=== PATIENT | male | born 1955 | race Caucasian/White ===

== ENCOUNTER 2018-03-24 16:34 | Inpatient (IN) ==
--- NOTE | 2018-03-24 16:47 | Emergency Department Note ---
ED Disposition Clinical Impression: Acute pulmonary edema, Congestive heart disease, CVA (cerebral vascular accident), Hypertension, Diabetes, Elevated troponin, Intraventricular conduction delay Disposition: Still a Patient Condition on Discharge: Fair - Critical Care Critical Care Time: No Attestation: On , the high probability of a clinically significant, sudden or life threatening deterioration of the following system(s) required my full and direct attention, intervention and personal management. The time I documented below is in addition to time spent performing reported procedures but includes the following listed in this critical care notation. Medical Decision Making - Medical Records Medical records reviewed: Yes: I reviewed the patient's medical records. - [place] Inquiry Pt receiving controlled substance: No [place] was queried for this patient: No Vital Signs: 03/24/18 16:34 03/24/18 16:35 03/24/18 17:04 Temperature 98.2 F 97.6 F Temperature Source Oral Oral Pulse Rate [Right Brachial] 117 H 124 H 117 H Respiratory Rate 26 H 32 H 16 Blood Pressure [Right Arm] 153/109 H 118/52 L 157/109 H Blood Pressure Mean [Right Arm] 123 74 125 Blood Pressure Source [Right Arm] Automatic Cuff Automatic Cuff Blood Pressure Position [Right Arm] Supine Sitting 02 Sat by Pulse Oximetry 99 86 L 99 Oxygen Delivery Method Room Air Room Air BiPAP 03/24/18 17:30 03/24/18 17:40 Temperature Temperature Source Pulse Rate [Right Brachial] 110 H 102 H Respiratory Rate 16 Blood Pressure [Right Arm] 124/82 124/82 Blood Pressure Mean [Right Arm] 96 96 Blood Pressure Source [Right Arm] Automatic Cuff Blood Pressure Position [Right Arm] Sitting 02 Sat by Pulse Oximetry 99 99 Oxygen Delivery Method BiPAP BiPAP - Lab Data Lab Results 03/24/18 16:20: D-Dimer 367 03/24/18 16:20: Sodium 137, Potassium 4.2, Chloride 99, Carbon Dioxide 24, Anion Gap 18.2 H, BUN 24 H, Creatinine 1.44 H, Estimated Creat Clear 69, Estimated GFR 50 L, Est GFR ( Amer) 60, Glucose 296 H, Calcium 8.9, Troponin I 2.68 H 03/24/18 16:20: B-Natriuretic Peptide 360 H 03/24/18 16:20: Total Bilirubin 0.4, Direct Bilirubin 0.1, Indirect Bilirubin 0.3, AST 30, ALT 28, Alkaline Phosphatase 139 H, Total Protein 7.9, Albumin 3.5 03/24/18 16:20: WBC 11.3 H, RBC 5.47, Hgb 17.3, Hct 50.3, MCV 92.0, MCH 31.6 H, MCHC 34.3, RDW 12.9, Plt Count 186, MPV 8.8, Neut % (Auto) 70.3, Lymph % (Auto) 22.7, [place] % (Auto) 5.3, Eos % (Auto) 1.2, Baso % (Auto) 0.5, Neut # (Auto) 7.9 H, Lymph # (Auto) 2.6, [place] # (Auto) 0.6, Eos # (Auto) 0.1, Baso # (Auto) 0.1 03/24/18 16:50: Specimen Source R/r, O2 % 100, ABG pH 7.33 L, ABG pCO2 41.0, ABG pO2 50.4 L, ABG HCO3 21.0 L, ABG Total CO2 22.3 L, ABG O2 Saturation 84 L*, ABG Base Excess -4.9 L, Cristian Test Y Result diagrams: 03/24/18 16:20 03/24/18 16:20 Orders (Tests/Meds): ED MEDICATIONS Discontinued Medications Generic Name Dose Route Start Last Admin Trade Name Santo PRN Reason Stop Dose Admin Furosemide 40 mg 03/24/18 17:04 03/24/18 17:08 Lasix 40mg/4ml Vial IV 03/24/18 17:05 40 mg ONCE ONE Administration Furosemide 40 mg 03/24/18 16:38 03/24/18 16:38 Lasix 40mg/4ml Vial IV 03/24/18 16:39 40 mg ONCE ONE Administration Sodium Chloride 500 mls @ 999 mls/hr 03/24/18 16:45 03/24/18 17:42 Sod Chlor 0.9% 1000ml Bag IV 03/24/18 17:15 Not Given .Q31M KIM Morphine Sulfate 2 mg 03/24/18 17:04 03/24/18 16:38 Morphine 2mg/Ml Syringe IV 03/24/18 17:05 2 mg ONCE ONE Administration Morphine Sulfate 2 mg 03/24/18 17:06 03/24/18 17:00 Morphine 2mg/Ml Syringe IV 03/24/18 17:07 2 mg ONCE ONE Administration Ondansetron HCl 4 mg 03/24/18 17:04 03/24/18 16:38 Zofran 4mg/2ml Vial IV 03/24/18 17:05 4 mg ONCE ONE Administration ORDERS Category Date Time Status Lactic Acid Stat Lab 03/24/18 16:39 Ordered Blood Culture Stat Micro 03/24/18 16:39 Ordered Arterial Blood Gas Stat RT 03/24/18 16:37 Ordered ECG Request by Dr/Nse Stat Y 03/24/18 16:37 Ordered - Radiology Data #1 Image(s): Chest Image Reviewed: Yes I reviewed the patient's radiology image Preliminary Findings: Abnormal Cardiomegaly and acute congestive heart failure. - ECG Data Tracing #1 Sinus tachycardia 122/min intraventricular conduction delay T wave inversions in the inferior leads and the lateral leads just involve ischemia. ECG initial impression date: 03/24/18 ECG initial impression time: 16:40 Medical Decision Narrative: After obtaining an EKG was sinus tachycardia T wave in inferior lead ischemia and lateral wall ischemia. His blood gas shows pH of 7.3 241/50/84% on 100% oxygen I called Dr. Vidal the active directory specialist who suggested to give the patient Lasix, he was given BiPAP and morphine for anxiety. He remained tachycardic his oxygenation went to 100% with blood pressure systolic of 150 he was given more Lasix. The patient gradually feeling better pressure has normalized remained to be tachycardic at 115/min. Discussed with the patient admission and possible cardiac catheterization in the morning he was agreeable.. I discussed with Dr. Vidal who preferred the patient to be stabilized before cardiac ca theterization so he can lay flat without orthopnea. I spoke with Dr. Akins data integration analyst for Dr. Swartz requested the patient start on Brilinta and given additional dose of Lasix at midnight. Resp/SOB HPI - General Chief Complaint: Chest Pain Stated Complaint: SUDDEN ONSET SOA Time Seen by Provider: 03/24/18 16:49 Mode of Arrival: Ambulatory Limitations: No Limitations Description of Symptoms (Recalled from ER Triage Doc. by RN): SHORTNESS OF AIR SUDDEN ONSETAPPROX 45 MINS AGO WHILE AT REST. PT STATES HAD HAD HEARTBURN FOR A WEEK (INDIGESTION) AND THAT HE IS STRUGGLING TO GET HIS BREATH - History of Present Illness 62 years old white male with history of hypertension diabetes and CVA 4 years ago. He has been experiencing heartburn for the past week until an hour ago when he started getting shortness of breath upon arrival to the ED his saturation was in the 80s applied oxygen obtain a stat chest x-ray was positive for congestive heart failure and cardiomegaly. Reviewed his 12-lead EKG which is positive for inferior wall ischemia and lateral wall ischemia and immediately faxed to Dr. Vidal the active directory specialist. The patient received morphine 2 mg IV, Lasix 40 mg IV and started him on BiPAP as he did not tolerate the 100%. MD Complaint: shortness of breath Onset (ago): hour(s) (1 hour prior to arrival.) Severity: severe Consistency/Duration: constant Relieving factors: upright position Exacerbating factors: lying flat Associated symptoms: orthopnea Treatment prior to arrival: none - Related Data Home Medications Medication Instructions Recorded Confirmed Clopidogrel Bisulfate [Plavix 75mg 75 mg PO DAILY 03/24/18 03/24/18 Tab] Insulin Glargine,Hum.rec.anlog 0 unit SQ DAILY 03/24/18 03/24/18 [Lantus Insulin 100units/mL 10mL vial] Insulin Lispro [Humalog] 0 unit SQ DAILYP PRN 03/24/18 03/24/18 Pravastatin Sodium 80 mg PO DAILY 03/24/18 03/24/18 Allergies Allergy/AdvReac Type Severity Reaction Status Date / Time NO KNOWN ALLERGIES Allergy Uncoded 04/24/17 14:30 [facility] History I have reviewed the patient's past medical history: Yes - Social History Educational Level: Completed High School Smoking Status: Unknown if ever smoked Tobacco Type: smokeless tobacco Alcohol Intake: never - Psychiatric History Expresses thoughts of harming self/others: None Suicide Plan Description: No Plan ROS Obtained: Yes All systems reviewed & no additional complaints Physical Exam - General General appearance: alert, in no apparent distress - Head Head exam: atraumatic, normocephalic, normal inspection - Eye Eye exam: Present: normal appearance, PERRL, EOMI. Absent: scleral icterus, nystagmus - ENT ENT exam: Present: normal exam, normal oropharynx, mucous membranes moist, TM's normal bilaterally, normal external ear exam - Neck Neck exam: Present: normal inspection, full ROM, trachea midline. Absent: tenderness, meningismus, lymphadenopathy - Chest Chest inspection: Present: normal inspection, symmetric chest wall rise. Absent: tenderness - Respiratory Respiratory exam: Present: normal lung sounds bilaterally. Absent: respiratory distress - Cardiovascular Cardiovascular exam: Present: regular rate, normal rhythm. Absent: JVD - Abdominal Exam Abdominal exam: Present: soft, normal bowel sounds. Absent: distention, tend erness, guarding - Extremities Exam Extremities exam: Present: normal inspection, full ROM, normal capillary refill. Absent: calf tenderness - Back Exam Back exam: Present: normal inspection. Absent: tenderness - Neurological Exam Neurological exam: Present: alert, oriented X3, CN II-XII intact, motor sensory deficit, reflexes normal - Psychiatric Psychiatric exam: Present: normal affect, normal mood - Skin Skin exam: Present: warm, dry, intact, normal color - Lymphatic Lymphatic Findings: no adenopathy
[2018-03-24 16:51] LABS: ABG Base Excess -4.9 mmol/L (-2.4-2.3); ABG Oxygen Saturation 84 % (90-100); ABG PH 7.33 mmol/L (7.35-7.45); ABG PO2 50.4 mmhg (80-100); ABG TCO2 22.3 mmhg (23-27)
[2018-03-24 17:05] LABS: Basophils # 0.1 K/mm3 (0-0.2); Basophils % 0.5 % (0.1-2.0); Eosinophils # 0.1 K/mm3 (0.0-0.4); Eosinophils % 1.2 % (0.1-12.0); Hematocrit 50.3 % (42.0-52.0); Hemoglobin 17.3 g/dL (14.1-18.0); Lymphocytes # 2.6 K/mm3 (0.7-4.5); Lymphocytes % 22.7 % (10-50); Mean Corpuscular HGB Conc 34.3 g/dL (31.8-35.4); Mean Corpuscular Hemoglobin 31.6 pg (27.0-31.2); Mean Platelet Volume 8.8 fl (7.4-10.4); Monocytes # 0.6 K/mm3 (0.1-1.0); Monocytes % 5.3 % (1.7-9.3); Neutrophils # 7.9 K/mm3 (1.8-7.8); Neutrophils % 70.3 % (37.0-80.0); Platelet Count 186 K/mm3 (142-424); Red Blood Count 5.47 M/mm3 (4.60-6.20); Red Cell Distribution Width 12.9 % (11.5-17.5); White Blood Count 11.3 K/mm3 (4.8-10.8)
[2018-03-24 17:06] LABS: Allen's Test Y; Oxygen 100 %
[2018-03-24 17:10] LABS: Albumin Level 3.5 gm/dL (3.4-5.0); Bilirubin,Direct 0.1 mg/dL (0.0-0.2); Bilirubin,Indirect 0.3 mg/dL (0.0-0.9); Bilirubin,Total 0.4 mg/dL (0.2-1.0); Total Protein,Serum 7.9 gm/dL (6.4-8.2)
[2018-03-24 17:21] LABS: Anion Gap 18.2 mEq/L (5-15); Calcium 8.9 mg/dL (8.5-10.1); Potassium 4.2 mmoL/L (3.5-5.1)
[2018-03-25 05:24] LABS: Basophils % 0.4 % (0.1-2.0); Eosinophils % 0.3 % (0.1-12.0); Hematocrit 48.2 % (42.0-52.0); Hemoglobin 15.2 g/dL (14.1-18.0); Lymphocytes # 1.9 K/mm3 (0.7-4.5); Mean Corpuscular HGB Conc 31.6 g/dL (31.8-35.4); Mean Corpuscular Hemoglobin 29.4 pg (27.0-31.2); Mean Corpuscular Volume 93.1 fl (80-94); Mean Platelet Volume 9.1 fl (7.4-10.4); Monocytes # 0.7 K/mm3 (0.1-1.0); Monocytes % 6.4 % (1.7-9.3); Neutrophils # 7.9 K/mm3 (1.8-7.8); Neutrophils % 74.9 % (37.0-80.0); Platelet Count 174 K/mm3 (142-424); Red Blood Count 5.18 M/mm3 (4.60-6.20); White Blood Count 10.5 K/mm3 (4.8-10.8)
[2018-03-25 05:27] LABS: Anion Gap 19.2 mEq/L (5-15); Calcium 8.4 mg/dL (8.5-10.1); Potassium 4.2 mmoL/L (3.5-5.1)
--- NOTE | 2018-03-25 07:42 | Pharmacy Consult Notes ---
[facility] Pharmacy VTE Monitoring - Patient Demographics Admission date: 03/24/18 Report Date: 03/25/18 Time: 07:42 Allergies/Adverse Reactions: Patient Allergies NO KNOWN ALLERGIES Allergy (Uncoded 04/24/17 14:30) Height: 1.73 m Weight: 135.171 kg Patient Problems: Current Active Problems Acute pulmonary edema (Acute) Congestive heart disease (Acute) CVA (cerebral vascular accident) (Acute) Hypertension (Acute) Diabetes (Acute) Elevated troponin (Acute) Intraventricular conduction delay (Acute) - VTE Risk Labs: VTE Related Lab Results Hgb 15.2 g/dL (14.1-18.0) D 03/25/18 04:50 Hct 48.2 % (42.0-52.0) 03/25/18 04:50 Plt Count 174 K/mm3 (142-424) 03/25/18 04:50 BUN 34 mg/dL (7-18) H D 03/25/18 04:50 Creatinine 1.83 mg/dL (0.70-1.30) H D 03/25/18 04:50 Estimated Creat Clear 41 mL/min (50-200) 03/25/18 04:50 VTE Score: 6 VTE Risk Level: Moderate Risk - Prophylaxis VTE Prophylaxis Ordered?: Yes Types of VTE Prophylaxis: TEDS Knee High, Pharmacological Location of Applied Device: Bilateral Lower Extremeties Pharmacologic Type: Other (BRILINTA) - VTE Diagnosis Confirmed Treatment or plan recommended: Continue Current Treatment
--- NOTE | 2018-03-25 10:48 | Consult Report ---
History of Present Illness Consult date: 03/25/18 Requesting physician: Baron Belle Consult reason: chest pain Chief complaint: chest pain, SOA Additional Medical History:: 1. History of CVA with residual short-term memory loss, approximately 2013 2. Diabetes mellitus, treated for greater than 12 years with most recent hemoglobin A1c of 10 3. Family history of heart disease 4. Abnormal CXR History of present illness: 62-year-old diabetic admitted through the ER for acute myocardial infarction. Patient with 1 week of stuttering chest pain and shortness of breath with decrease in exercise tolerance. Patient describes the chest pain as a heartburn type sensation in the substernal area. Symptoms would resolve after rest for several minutes. Yesterday symptoms onset at rest and would not resolve with associated severe shortness of breath. Patient came to the ER for further evaluation. EKG showed inferior ST segment depression with T wave inversion also noted in the lateral leads as well. Initial troponin was elevated at 2.6 and patient was admitted after being started on antiplatelet and anticoagulation therapy. Patient has remained symptom-free overnight. EKG this a.m. shows resolution of ST-T wave abnormalities. [facility] History Medical History: Reports:: Cerebrovascular Accident, Diabetes Mellitus Type 2 - *Social History Educational Level: Completed High School Smoking Status: Unknown if ever smoked Tobacco Type: smokeless tobacco Alcohol Intake: never - Psychiatric History Expresses thoughts of harming self/others: None Suicide Plan Description: No Plan Meds Home Medications Medication Instructions Recorded Confirmed Type Clopidogrel Bisulfate [Plavix 75mg 75 mg PO DAILY 03/24/18 03/24/18 History Tab] Empagliflozin [Jardiance] 25 mg PO DAILY 03/24/18 03/24/18 History Insulin Aspart [Novolog Flexpen] 0 unit SQ BID 03/24/18 03/24/18 History Insulin Glargine,Hum.rec.anlog 44 unit SQ DAILY 03/24/18 03/24/18 History [Lantus Insulin 100units/mL 10mL vial] Lisinopril [Lisinopril 40mg Tablet] 40 mg PO DAILY 03/24/18 03/24/18 History Pravastatin Sodium 80 mg PO HS 03/24/18 03/25/18 History Allergies Allergy/AdvReac Type Severity Reaction Status Date / Time No Known Allergies Allergy Unverified 03/25/18 10:21 Review of Systems - *Cardiovascular Reports chest pain with activity, Reports shortness of breath - *Respiratory Reports shortness of breath with activity - *Gastrointestinal Reports heartburn, Denies abdominal pain - *Genitourinary Denies blood in urine - *Musculoskeletal Denies joint pain Exam Vital signs and Labs for Last 24 Hours: Temp Pulse Resp BP Pulse Ox 98.2 F 82 14 121/83 100 03/25/18 10:00 03/25/18 10:00 03/25/18 10:00 03/25/18 10:00 03/25/18 10:00 Laboratory Results - last 24 hr 03/24/18 16:20: D-Dimer 367 03/24/18 16:20: Sodium 137, Potassium 4.2, Chloride 99, Carbon Dioxide 24, Anion Gap 18.2 H, BUN 24 H, Creatinine 1.44 H, Estimated Creat Clear 69, Estimated GFR 50 L, Est GFR ( Amer) 60, Glucose 296 H, Calcium 8.9, Troponin I 2.68 H 03/24/18 16:20: B-Natriuretic Peptide 360 H 03/24/18 16:20: Total Bilirubin 0.4, Direct Bilirubin 0.1, Indirect Bilirubin 0.3, AST 30, ALT 28, Alkaline Phosphatase 139 H, Total Protein 7.9, Albumin 3.5 03/24/18 16:20: WBC 11.3 H, RBC 5.47, Hgb 17.3, Hct 50.3, MCV 92.0, MCH 31.6 H, MCHC 34.3, RDW 12.9, Plt Count 186, MPV 8.8, Neut % (Auto) 70.3, Lymph % (Auto) 22.7, [place] % (Auto) 5.3, Eos % (Auto) 1.2, Baso % (Auto) 0.5, Neut # (Auto) 7.9 H, Lymph # (Auto) 2.6, [place]ard # (Auto) 0.6, Eos # (Auto) 0.1, Baso # (Auto) 0.1 03/24/18 16:50: Specimen Source R/r, O2 % 100, ABG pH 7.33 L, ABG pCO2 41.0, ABG pO2 50.4 L, ABG HCO3 21.0 L, ABG Total CO2 22.3 L, ABG O2 Saturation 84 L*, ABG Base Excess -4.9 L, Cristian Test Y 03/24/18 19:40: Troponin I 6.32 H 03/24/18 22:00: Troponin I 5.79 H 03/25/18 04:50: WBC 10.5, RBC 5.18, Hgb 15.2 D, Hct 48.2, MCV 93.1, MCH 29.4, MCHC 31.6 L, RDW 13.0, Plt Count 174, MPV 9.1, Neut % (Auto) 74.9, Lymph % (Auto) 18.0, [place] % (Auto) 6.4, Eos % (Auto) 0.3, Baso % (Auto) 0.4, Neut # (Auto) 7.9 H, Lymph # (Auto) 1.9, [place]ard # (Auto) 0.7, Eos # (Auto) 0.0, Baso # (Auto) 0.0 03/25/18 04:50: Sodium 135 L, Potassium 4.2, Chloride 97 L, Carbon Dioxide 23, Anion Gap 19.2 H, BUN 34 H D, Creatinine 1.83 H D, Estimated Creat Clear 41, Estimated GFR 38 L, Est GFR ( Amer) 46 L D, Glucose 352 H, Calcium 8.4 L I & O for Last 24 hours: Intake & Output 03/22/18 03/23/18 03/24/18 03/25/18 11:59 11:59 11:59 11:59 Intake Total 240 / 240 Output Total 3550 / 3550 Balance -3310 / -3310 Weight 298 lb - *Routine Neck Exam Present: supple. Absent: JVD, carotid bruit - *Routine Respiratory Exam Present: decreased breath sounds, crackles. Absent: accessory muscle use, rales, rhonchi, wheezes - *Routine Cardiovascular Exam Present: RRR, murmur. Absent: gallop, rubs - *Routine Abdominal Exam Present: soft. Absent: tenderness, distended, guarding - *Routine Extremities Exam Absent: edema, calf tenderness - *Routine Neurological Exam Present: alert, oriented X3, moving all extremities Assessment and Plan (1) Acute myocardial infarction Current visit: Yes Status: Acute Category: Medical Code(s): I21.9 - Acute myocardial infarction, unspecified (2) Acute pulmonary edema Current visit: Yes Status: Acute Category: Medical Code(s): J81.0 - Acute pulmonary edema (3) Diabetes Current visit: Yes Status: Acute Category: Medical Code(s): E11.9 - Type 2 diabetes mellitus without complications (4) CKD stage 3 due to type 2 diabetes mellitus Current visit: Yes Status: Acute Category: Medical Code(s): E11.22 - Type 2 diabetes mellitus with diabetic chronic kidney disease; N18.3 - Chronic kidney disease, stage 3 (moderate) (5) Abnormal chest x-ray Current visit: Yes Status: Acute Category: Medical Code(s): R93.89 - Abnormal findings on diagnostic imaging of other specified body structures - Assessment and plan all Dx Assessment and Plan for all problems:: 1. Plan to proceed with left heart catheterization due to acute myocardial infarction. Patient currently symptom-free. Risks, benefits and procedure explained to the patient with questions answered. 2. Will obtain an echocardiogram 3. Further recommendations to follow.
--- NOTE | 2018-03-25 10:53 | History & Physical Report ---
*Admission Date: 03/24/18 *Chief complaint: Chest pain/shortness of air *History of present illness: 62-year-old white male with diabetes, insulin requiring, history of cerebrovascular disease and a 1 week history of increased chest pain with heartburn type symptoms that culminated increasing shortness of air, orthopnea and rapid heart rates that cause presentation to the emergency department late yesterday. In the emergency department was noted elevated troponins, pulmonary edema on exam and confirmed by chest x-ray and evidence of tachycardia. Patient was treated with oxygen support/BiPAP support for respiratory acidosis, diuresed with Lasix and placed on anticoagulant therapy after EKG showed ST segment changes without evidence of STEMI. Given elevated troponin levels and presentation of cardiac symptoms and pulmonary edema patient was diagnosed with non-STEMI with cardiogenic pulmonary edema and admitted to intensive care unit for further evaluation. [facility] History I have reviewed the patient's past medical history: Yes Medical History: Reports:: Anxiety, Carotid Stenosis, Coronary Artery Disease, Cerebrovascular Accident, Diabetes Mellitus Type 2 (Insulin requiring), Gastroesophageal Reflux Disease(GERD) Denies:: Gastrointestinal Bleed, Hiatal Hernia, Home Oxygen Laterality Cases: Bilateral: Other - *Social History Educational Level: Completed High School Smoking Status: Unknown if ever smoked Tobacco Type: smokeless tobacco Alcohol Intake: never - Psychiatric History Expresses thoughts of harming self/others: None Suicide Plan Description: No Plan *Family Hx:: No significant family history, Non-contributory Review of Systems - Review of Systems Review of systems:: pertinent systems reviewed and negative unless documented below This morning patient feels better.: Positive for occasional twinges of chest pain, but improved. Positive for shortness of air when he moves around in the bed but improved. Negative for GI symptoms. Negative for symptoms. Negative for neurologic symptoms of strokelike symptoms or confusion. Negative for symptoms of extremity swelling, weakness or chills or paresthesias. Negative for skin rash or changes. Meds Home Medications Medication Instructions Recorded Confirmed Type Clopidogrel Bisulfate [Plavix 75mg 75 mg PO DAILY 03/24/18 03/24/18 History Tab] Empagliflozin [Jardiance] 25 mg PO DAILY 03/24/18 03/24/18 History Insulin Aspart [Novolog Flexpen] 0 unit SQ BID 03/24/18 03/24/18 History Insulin Glargine,Hum.rec.anlog 44 unit SQ DAILY 03/24/18 03/24/18 History [Lantus Insulin 100units/mL 10mL vial] Lisinopril [Lisinopril 40mg Tablet] 40 mg PO DAILY 03/24/18 03/24/18 History Pravastatin Sodium 80 mg PO HS 03/24/18 03/25/18 History Allergies Allergy/AdvReac Type Severity Reaction Status Date / Time No Known Allergies Allergy Unverified 03/25/18 10:21 Exam Vital signs and Labs for Last 24 Hours: Temp Pulse Resp BP Pulse Ox 98.2 F 82 14 121/83 100 03/25/18 10:00 03/25/18 10:00 03/25/18 10:00 03/25/18 10:00 03/25/18 10:00 Laboratory Results - last 24 hr 03/24/18 16:20: D-Dimer 367 03/24/18 16:20: Sodium 137, Potassium 4.2, Chloride 99, Carbon Dioxide 24, Anion Gap 18.2 H, BUN 24 H, Creatinine 1.44 H, Estimated Creat Clear 69, Estimated GFR 50 L, Est GFR ( Amer) 60, Glucose 296 H, Calcium 8.9, Troponin I 2.68 H 03/24/18 16:20: B-Natriuretic Peptide 360 H 03/24/18 16:20: Total Bilirubin 0.4, Direct Bilirubin 0.1, Indirect Bilirubin 0.3, AST 30, ALT 28, Alkaline Phosphatase 139 H, Total Protein 7.9, Albumin 3.5 03/24/18 16:20: WBC 11.3 H, RBC 5.47, Hgb 17.3, Hct 50.3, MCV 92.0, MCH 31.6 H, MCHC 34.3, RDW 12.9, Plt Count 186, MPV 8.8, Neut % (Auto) 70.3, Lymph % (Auto) 22.7, [place] % (Auto) 5.3, Eos % (Auto) 1.2, Baso % (Auto) 0.5, Neut # (Auto) 7.9 H, Lymph # (Auto) 2.6, [place] # (Auto) 0.6, Eos # (Auto) 0.1, Baso # (Auto) 0.1 03/24/18 16:50: Specimen Source R/r, O2 % 100, ABG pH 7.33 L, ABG pCO2 41.0, ABG pO2 50.4 L, ABG HCO3 21.0 L, ABG Total CO2 22.3 L, ABG O2 Saturation 84 L*, ABG Base Excess -4.9 L, Cristian Test Y 03/24/18 19:40: Troponin I 6.32 H 03/24/18 22:00: Troponin I 5.79 H 03/25/18 04:50: WBC 10.5, RBC 5.18, Hgb 15.2 D, Hct 48.2, MCV 93.1, MCH 29.4, MCHC 31.6 L, RDW 13.0, Plt Count 174, MPV 9.1, Neut % (Auto) 74.9, Lymph % (Auto) 18.0, [place] % (Auto) 6.4, Eos % (Auto) 0.3, Baso % (Auto) 0.4, Neut # (Auto) 7.9 H, Lymph # (Auto) 1.9, [place] # (Auto) 0.7, Eos # (Auto) 0.0, Baso # (Auto) 0.0 03/25/18 04:50: Sodium 135 L, Potassium 4.2, Chloride 97 L, Carbon Dioxide 23, Anion Gap 19.2 H, BUN 34 H D, Creatinine 1.83 H D, Estimated Creat Clear 41, Estimated GFR 38 L, Est GFR ( Amer) 46 L D, Glucose 352 H, Calcium 8.4 L I & O for Last 24 hours: Intake & Output 03/22/18 03/23/18 03/24/18 03/25/18 11:59 11:59 11:59 11:59 Intake Total 240 / 240 Output Total 3550 / 3550 Balance -3310 / -3310 Weight 298 lb Narrative: Is alert, oriented x3, wearing oxygen mask. ENT exam otherwise clear, no JVD this morning. Oropharynx clear. Cranial nerves are intact. Moves all arms and legs symmetrically. Abdomen soft, nontender, no hepatosplenic megaly. Heart rate regular without murmurs. Tachycardia has improved. Lungs have rhonchi in both bases but no crackles this morning. H&P: Result - Impressions Agree with assessment of cardiopulmonary edema and the need for intervention with heart catheterization. Assessment and Plan (1) Acute myocardial infarction Current visit: Yes Status: Acute Category: Medical Code(s): I21.9 - Acute myocardial infarction, unspecified Agree with admission, agree with cardiac catheterization. (2) Acute pulmonary edema Current visit: Yes Status: Acute Category: Medical Code(s): J81.0 - Acute pulmonary edema Improved after Lasix. Await catheter results. (3) Elevated troponin Current visit: Yes Status: Acute Category: Medical Code(s): R74.8 - Abnormal levels of other serum enzymes
--- NOTE | 2018-03-25 18:00 | Discharge Summary ---
General - General Admission date:: 03/24/18 Discharge date: 03/25/18 HPI HPI: 62-year-old white male with diabetes, insulin requiring, history of cerebrovascular disease and a 1 week history of increased chest pain with heartburn type symptoms that culminated increasing shortness of air, orthopnea and rapid heart rates that cause presentation to the emergency department late yesterday. In the emergency department was noted elevated troponins, pulmonary edema on exam and confirmed by chest x-ray and evidence of tachycardia. Patient was treated with oxygen support/BiPAP support for respiratory acidosis, diuresed with Lasix and placed on anticoagulant therapy after EKG showed ST segment changes without evidence of STEMI. Given elevated troponin levels and presentation of cardiac symptoms and pulmonary edema patient was diagnosed with non-STEMI with cardiogenic pulmonary edema and admitted to intensive care unit for further evaluation. Hospital Course Hospital Course: Patient was admitted and serial enzyme testing ruled patient in for myocardial infarction. Patient taken to heart cath this morning and the following results were found per cardiology report: ANGIOGRAPHIC RESULTS: 1. The left main artery has a distal concentric 70% stenosis 2. The left anterior descending artery has a proximal 90% stenosis with small vessel vasculopathy throughout. There is additional mid vessel 70% stenoses and an 80% stenosis. The first diagonal artery is a large branch and has a long proximal 90% stenosis 3. The circumflex artery is a nondominant vessel with an ostial 50% stenosis. 2 small obtuse marginal arteries have severe greater than 90% stenoses however are both less than 1 mm diameter 4. The right coronary artery is a large dominant vessel with a proximal greater than 90% focal stenosis followed by additional 30% mid vessel stenoses distal 40% stenoses. The posterior descending artery has a proximal 90% stenosis while the posterior lateral ventricular branch has diffuse high-grade stenoses throughout a small caliber vessel 5. The OCAMPO ventriculogram reveals mildly reduced at 50% with mid anterior apical hypokinesis 6. The left ventricular end-diastolic pressure 20 mmHg IMPRESSION: 1. Critical coronary artery disease as described above 2. Regional wall motion abnormality with mildly reduced ejection fraction 3. Mildly elevated LVEDP PLAN: 1. Patient should be transferred to [facility] this evening and should undergo bypass surgery at the earliest possible opportunity 2. Continue with high intensity statin therapy and aspirin perioperatively 3. Aggressive risk factor modification Because of the above-noted findings and recommendations patient will be transferred to [facility] for evaluation for revascularization. Objective Vital signs: Temp Pulse Resp BP Pulse Ox 98.0 F 91 H 18 114/73 97 03/25/18 14:00 03/25/18 16:30 03/25/18 16:30 03/25/18 16:30 03/25/18 16:30 Narrative: At time of discharge patient is awake, alert. Oriented x3. He is a little tearful about undergoing the procedure but is consolable. Lungs are clear, with minimal bibasilar rhonchi otherwise, heart rate regular without murmurs. Abdomen soft and nontender, able to move all Achilles, minimal pedal edema. Results Labs on day of discharge: Labs from last 24 hours 03/25/18 03/25/18 03/25/18 17:17 13:01 04:50 WBC RBC Hgb Hct MCV MCH MCHC RDW Plt Count MPV Neut % (Auto) Lymph % (Auto) [place] % (Auto) Eos % (Auto) Baso % (Auto) Neut # (Auto) Lymph # (Auto) [place] # (Auto) Eos # (Auto) Baso # (Auto) Sodium 135 L Potassium 4.2 Chloride 97 L Carbon Dioxide 23 Anion Gap 19.2 H BUN 34 H D Creatinine 1.83 H D Estimated Creat Clear 41 Estimated GFR 38 L Est GFR ( Amer) 46 L D Glucose 352 H POC Glucose 163 H 239 H Calcium 8.4 L Troponin I 03/25/18 03/24/18 03/24/18 04:50 22:00 19:40 WBC 10.5 RBC 5.18 Hgb 15.2 D Hct 48.2 MCV 93.1 MCH 29.4 MCHC 31.6 L RDW 13.0 Plt Count 174 MPV 9.1 Neut % (Auto) 74.9 Lymph % (Auto) 18.0 [place] % (Auto) 6.4 Eos % (Auto) 0.3 Baso % (Auto) 0.4 Neut # (Auto) 7.9 H Lymph # (Auto) 1.9 [place] # (Auto) 0.7 Eos # (Auto) 0.0 Baso # (Auto) 0.0 Sodium Potassium Chloride Carbon Dioxide Anion Gap BUN Creatinine Estimated Creat Clear Estimated GFR Est GFR ( Amer) Glucose POC Glucose Calcium Troponin I 5.79 H 6.32 H DS: Diagnosis - Discharge Diagnosis (1) Acute myocardial infarction Status: Acute (2) Acute pulmonary edema Status: Acute (3) Elevated troponin Status: Acute Discharge Plan - Patient Discharge Instructions ACTIVITY: Continue current activity DIET: continue same diet - Follow up Plan Disposition: Xfer Short-Term Hosp Home Medications: Home Medications Medication Instructions Recorded Confirmed Type Clopidogrel Bisulfate [Plavix 75mg 75 mg PO DAILY 03/24/18 03/24/18 History Tab] Empagliflozin [Jardiance] 25 mg PO DAILY 03/24/18 03/24/18 History Insulin Aspart [Novolog Flexpen] 0 unit SQ BID 03/24/18 03/24/18 History Insulin Glargine,Hum.rec.anlog 44 unit SQ DAILY 03/24/18 03/24/18 History [Lantus Insulin 100units/mL 10mL vial] Lisinopril [Lisinopril 40mg Tablet] 40 mg PO DAILY 03/24/18 03/24/18 History Pravastatin Sodium 80 mg PO HS 03/24/18 03/25/18 History Prescriptions/Medication Reconciliation: No Action Clopidogrel Bisulfate [Plavix 75mg Tab] 75 mg PO DAILY Pravastatin Sodium 80 mg PO HS Insulin Glargine,Hum.rec.anlog [Lantus Insulin 100units/mL 10mL vial] 44 unit SQ DAILY Empagliflozin [Jardiance] 25 mg PO DAILY Insulin Aspart [Novolog Flexpen] 0 unit SQ BID Lisinopril [Lisinopril 40mg Tablet] 40 mg PO DAILY
== END 2018-03-25 20:40 | disposition short-term general hospital (02) ==
LOC: ER 16:34 → ICU 18:47
PROVIDERS: ADMIT Family Medicine; ATTEND Internal Medicine Adolescent Medicine